=== PATIENT | male | born 2000 | race Caucasian/White ===

== ENCOUNTER 2024-05-18 04:01 | Emergency (ER) | payer SELFPAY ==
[~2024-05-18] VITALS: Ht 165.1 cm; Wt 77.1 kg
[2024-05-18 04:01] VITALS: BP 122/76; PULSE 94; RESP 17; TEMP 97.8; O2SAT 97
[2024-05-18 04:24] VITALS: BP 122/76; PULSE 94; RESP 17; TEMP 97.8; O2SAT 97
== END 2024-05-18 04:24 ==
LOC: MED 04:01
DX: Z02.89 Encounter for other administrative examinations (principal); V49.88XA Car occupant (driver) (passenger) injured in other specified transport accidents, initial encounter; Y93.89 Activity, other specified; Y92.89 Other specified places as the place of occurrence of the external cause; Y99.8 Other external cause status
CPT/HCPCS: 99283